=== PATIENT | female | born 1970 | race Caucasian/White ===

== ENCOUNTER 2022-07-01 17:09 | Outpatient (CLI) | payer OTHER, SELFPAY ==
[2022-07-01 17:32] LABS: Basophils Absolute Auto 0.1 K/mm3 (0.0-0.1); Basophils Percent Auto 0.5 % (0.2-1.2); Eosinophils Absolute Auto 0.2 K/mm3 (0-0.3); Eosinophils Percent Auto 1.4 % (0-4.4); Hemoglobin 12.2 g/dL (12.0-15.0); Immature Granulocyte Absolute 0.04 K/mm3 (0.00-0.031); Immature Granulocyte Percent A 0.3 % (0-0.5); Lymphocytes Absolute Auto 2.11 K/mm3 (0.9-3.2); Lymphocytes Percent Auto 16.2 % (18.3-44.2); Mean Corpuscular HGB Conc 30.5 g/dl (32-36); Mean Corpuscular Hemoglobin 22.1 pg (26-34); Mean Corpuscular Volume 72.3 fl (80-100); Mean Platelet Volume 8.8 fl (7.4-10.4); Monocytes Absolute Auto 0.7 K/mm3 (0.1-0.6); Monocytes Percent Auto 5.1 % (2.6-8.5); Neutrophils Percent Auto 76.5 % (45.5-73.1); Platelet Count Result 484 k/mm3 (150-375); Red Blood Count 5.53 M/mm3 (4.2-5.4); Red Cell Distribution Width 20.1 % (11.5-14.5)
[2022-07-01 17:47] LABS: Alanine Aminotransferase 21 U/L (6-35); Albumin Level 4.1 g/dL (3.5-5.1); Alkaline Phosphatase 95 U/L (38-126); Anion Gap 10 mmol/L (8-16); Aspartate Amino Transferase 26 U/L (14-36); Bilirubin,Total 0.6 mg/dL (0.2-1.3); Blood Urea Nitrogen 11 mg/dL (7-17); Calcium 8.3 mg/dL (8.4-10.2); Carbon Dioxide 25 mmol/L (22-30); Chloride 102 mmol/L (98-107); Cholesterol 198 mg/dL (0-200); Estimated Glomerular Filt Rate > 60; Glucose 150 mg/dL (65-110); HDL Direct 41 mg/dL; Sodium 137 mmol/L (137-145); Triglycerides 90 mg/dL (<150)
[2022-07-01 17:58] LABS: LDL Cholesterol Direct 116 mg/dL
[2022-07-01 18:03] LABS: Bacteria Urine None Seen /hpf; Non Pathogenic Casts 0-2; RBC Urine >100 /hpf (0-2); Squamous Epithelial Cell Urine Few /hpf (Few); WBC Urine >100 /hpf (0-3)
[2022-07-01 18:13] LABS: Thyroid Stimulating Hormone 0.855 uIU/mL (0.465-4.680)
[2022-07-01 18:23] LABS: Iron 42 ug/dL (37-170)
[2022-07-01 18:32] LABS: Appearance Urine Cloudy (Clear); Bilirubin Urine Negative (Negative); Blood Urine 3+ (Negative); Color Urine Yellow (Yellow); Glucose Urine UA Negative (Negative); Ketones Urine Trace mg/dL (Negative); Leukocyte Esterase Ur 1+ LEU/UL (NEGATIVE); Nitrate Urine Negative (Negative); Protein Urine 2+ mg/dL (Negative); Urobilinogen Urine 0.2 mg/dL (<2.0)
[2022-07-01 18:33] LABS: Percent Iron Saturation 11 % (20-50)
[2022-07-01 18:53] LABS: Add Urine Microscopic? YES
[2022-07-01 19:07] LABS: Free T4 Free Thyroxine 1.09 ng/mL (0.78-2.19); Vitamin D 25 Hydroxy 30.6 ng/mL
[2022-07-01 20:09] LABS: Hypochromasia 1+ (NORMAL); Platelet Estimate Increased (Adequate); Schistocytes None Seen (NORMAL)
[2022-07-01 20:10] LABS: Anisocytosis 3+ (NORMAL)
== END 2022-07-01 17:10 | disposition home or self-care (01) ==
LOC: ANHLAB 17:09
PROVIDERS: PCP Internal Medicine; Visit Provider Nurse Practitioner Family
DX: N39.0 Urinary tract infection, site not specified (principal); F41.9 Anxiety disorder, unspecified; E55.9 Vitamin D deficiency, unspecified; Z79.899 Other long term (current) drug therapy; I10 Essential (primary) hypertension; D64.9 Anemia, unspecified; Z13.220 Encounter for screening for lipoid disorders
CPT/HCPCS: 36415; 80053; 80061; 81001; 82306; 83540; 83550; 84439; 84443; 85025; 87077; 87086; 87088; 87186

== ENCOUNTER 2022-07-03 13:56 | Outpatient (CLI) | payer OTHER, SELFPAY ==
--- NOTE | ~2022-07-03 | DEXA_ITS ---
Bone Density Report Name: SKYLER VENEGAS Age: 51 Sex: Female Ethnicity: White Date of : 1970 Indication: postmenopausal; screening for osteoporosis; hysterectomy; Referring Provider: KEVON SANCHEZ Study: Bone densitometry was performed. Exam Date: July 03, 2022 Accession number: [id number] Bone Density: Region BMD T-score Z-score Classification AP Spine(L1-L4) 1.063 0.1 1.1 Normal Femoral Neck (Left) 0.807 -0.4 0.6 Normal Total Hip (Left) 0.998 0.5 1.1 Normal Femoral Neck (Right) 0.854 0.0 1.0 Normal Total Hip (Right) 1.029 0.7 1.3 Normal Total Hip Mean 1.014 0.6 1.2 Normal World Health Organization criteria for BMD impression classify patients as: Normal (T-score at or above -1.0), Osteopenia (T-score between -1.0 and -2.5), or Osteoporosis (T-score at or below -2.5). 10-year Fracture Risk: FRAX not reported because: All T-scores for Spine Total, Hip Total, Femoral Neck at or above -1.0 Clinical Information Provided by Patient: Has the following medical conditions: Hysterectomy Patient maximum height was 60 Menopause Age: 31 No regular weight bearing exercise Drinks caffeinated beverages Onset of menses at age 10 Number of children 2 Impression: The patient has normal bone mass. Discussion: BONE DENSITY IS ABOVE THE MINIMUM DESIRABLE LEVEL AT ALL SKELETAL SITES TESTED. This patient?s bone mineral density is above the minimum desirable level (T-score -1.0 or better) at all sites measured. The patient should follow a healthful lifestyle (good nutrition with adequate calcium and vitamin D, and appropriate weight-bearing exercise). Follow-Up: Consider repeating this study in 5 years or sooner if there is some new clinical indication. Reported by: [facility] on 07/03/2022 2:28:00 PM. Reviewed, dictated and finalized at location A. [facility]
--- NOTE | ~2022-07-03 | MM_ITS ---
EXAMINATION: MM screening jesi BI w zita HISTORY: Screening TECHNIQUE: Craniocaudal and mediolateral oblique 3-D tomosynthesis images were obtained and synthetic 2-D images were generated. CAD analysis was submitted and interpreted. COMPARISON: 03/09/2018 BREAST PARENCHYMAL COMPOSITION: There are scattered areas of fibroglandular density. FINDINGS: There is no evidence of suspicious mass, calcification, or architectural distortion to sugg est malignancy in either breast. There has been no suspicious interval change. IMPRESSION: 1. No mammographic evidence of malignancy. 2. Recommend routine screening mammography in one year. BI-RADS Category 1: Negative Reviewed, dictated and finalized at location B.
== END 2022-07-03 13:57 | disposition home or self-care (01) ==
LOC: ANHIMG 13:57
PROVIDERS: PCP Internal Medicine; Visit Provider Nurse Practitioner Family
DX: Z12.31 Encounter for screening mammogram for malignant neoplasm of breast (principal); Z13.820 Encounter for screening for osteoporosis; Z78.0 Asymptomatic menopausal state
CPT/HCPCS: 77063; 77067; 77080

== ENCOUNTER 2024-05-09 12:17 | Inpatient (IN) | payer SELFPAY ==
[2024-05-09] VITALS (15 sets, daily range): BP systolic 123–183; BP diastolic 72–115; PULSE 68–104; RESP 12–26; TEMP 36.8–37.2; O2SAT 95–99; BMI 33.6
--- NOTE | ~2024-05-09 | XR_ITS ---
Portable chest x-ray Comparison: 03/28/2009 Clinical History: Chest pain Findings: Lungs are clear, without focal consolidation or pleural effusion. Cardiomediastinal silho uette is stable. Bones and soft tissues are unremarkable. Impression: Clear lungs. Reviewed, dictated and finalized at location . Impression: Clear lungs.
--- NOTE | 2024-05-09 12:21 | ECG_ITS ---
Test Date: 2024-05-09 12:24:11 Measurements Intervals Lester Rate: 104 P: 63 MT: 187 QRS: -26 QRSD: 98 T: 76 QT: 364 QTc: 481 Interpretive Statements SINUS TACHYCARDIA POSSIBLE ANTERIOR MYOCARDIAL INFARCTION , OF INDETERMINATE AGE [30 ms Q WAVE IN V3/V4, OR R < 0.2 mV IN V4] INFERIOR MYOCARDIAL INFARCTION , POSSIBLY ACUTE [40+ ms Q WAVE AND/OR ST/T ABNORMALITY IN II/aVF] ACUTE OK No previous ECG available for comparison Electronically Signed On 05-10-2024 12:07:08 CDT by Jake Barnett M.D.
[2024-05-09] MEDS: HEPARIN SODIUM 5,000 UNITS/ML VIAL 4000 UNITS IV PUSH (12:33)
[2024-05-09] MEDS: TICAGRELOR 90 MG TABLET 180 MG PO (12:33)
[2024-05-09] MEDS: MORPHINE SULFATE (*CRX) 4 MG/ML INJ IV PUSH (12:34)
[2024-05-09 12:38] LABS: Basophils Absolute Auto 0.1 K/mm3 (0.0-0.1); Basophils Percent Auto 0.9 % (0.2-1.2); Eosinophils Absolute Auto 0.2 K/mm3 (0-0.3); Hematocrit 38.1 % (37.0-47.0); Hemoglobin 11.8 g/dL (12.0-15.0); Immature Granulocyte Absolute 0.02 K/mm3 (0.00-0.031); Immature Granulocyte Percent A 0.3 % (0-0.5); Lymphocytes Absolute Auto 2.37 K/mm3 (0.9-3.2); Lymphocytes Percent Auto 35.9 % (18.3-44.2); Mean Corpuscular Hemoglobin 22.6 pg (26-34); Mean Platelet Volume 9.1 fl (7.4-10.4); Monocytes Absolute Auto 0.8 K/mm3 (0.1-0.6); Neutrophils Absolute Auto 3.2 K/mm3 (1.3-6.7); Neutrophils Percent Auto 47.9 % (45.5-73.1); Platelet Count Result 443 k/mm3 (150-375); Red Blood Count 5.22 M/mm3 (4.2-5.4); Red Cell Distribution Width 18.7 % (11.5-14.5); White Blood Count 6.6 K/mm3 (4.5-10.0)
--- NOTE | 2024-05-09 12:38 | ED_ITS ---
HPI - General Adult General Chief complaint: Chest Pain Stated complaint: STEMI Time Seen by Provider: 05/09/24 12:23 History of Present Illness HPI narrative: 53-year-old female presented emergency department for evaluation evaluation of chest pain that started approximately 20 minutes prior to arrival. Patient describes the chest pain is a pressure across her bilateral chest that did radiate into her neck and into her back. Patient has no prior history of coronary artery disease. Patient does have history hypertension, patient denies any history of high cholesterol or diabetes. Patient states she has never had a stress test. Patient does have a significant history of anxiety. Due to her EKG STEMI was called in the field and this EKG was shared with Cardiology prior to the patient's arrival to the emergency department. Related Data Allergies Allergy/AdvReac Type Severity Reaction Status Date / Time cephalexin Allergy Intermediate Dizziness Verified 01/14/24 10:10 brompheniramine Allergy Mild Other Verified 01/14/24 10:10 dextromethorphan Allergy Mild Headache Verified 01/14/24 10:10 pseudoephedrine Allergy Mild Headache Verified 01/14/24 10:10 Review of Systems 2 Review of Systems: All systems reviewed & are unremarkable except as noted in HPI and below PMFSH Surgical History Surgical History History of cholecystectomy H/O: hysterectomy Family History Family History Father No problems noted. Mother No problems noted. Sibling No problems noted. 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 Gender identity (if verbalized by the patient): Female Spiritual care concerns: No Exam 2 Narrative: APPEARANCE: Uncomfortable appearing HEAD: normocephalic, atraumatic. EYES: PERRLA/EOMI, conjunctivae clear. NOSE: Normal no drainage EARS:TMS clear with good light reflex. THROAT: Pharynx clear, no exudate. NECK: Supple. No adenopathy, no masses. RESPIRATORY: Airway patent, respirations nonlabored. Clear to auscultation bilaterally, no rales, rhonchi, wheezing. CARDIOVASCULAR: Regular rate and rhythm without murmurs rubs or gallops. ABDOMINAL: Soft, nontender, nondistended, normal bowel sounds MUSCULOSKELETAL: Moves all extremities. Strength/ROM intact, No edema, No calf tenderness. NEURO: Alert. Cranial nerves II through XII intact. Grossly intact SKIN: Warm, dry. Normal Color Course Vital Signs Vital signs: Vital Signs Temperature 98.2 F 05/09/24 12:22 Pulse Rate 104 H 05/09/24 12:22 Respiratory Rate 16 05/09/24 12:22 Blood Pressure 183/112 H 05/09/24 12:22 Pulse Oximetry 98 05/09/24 12:22 Oxygen Delivery Room Air 05/09/24 12:22 Temperature 98.4 F 05/09/24 16:30 Pulse Rate 73 05/09/24 19:10 Respiratory Rate 18 05/09/24 19:10 Blood Pressure 123/89 05/09/24 19:10 Pulse Oximetry 99 05/09/24 19:10 Oxygen Delivery Room Air 05/09/24 16:00 Medical Decision Making MDM Narrative Medical decision making narrative: 53-year-old female presenting to the emergency department for evaluation for chest pain. EKG was concerning for acute STEMI. Case was discussed with Cardiology. Patient did have 34 aspirin prior to arrival. Patient was treated with 4000 of heparin along with 180 of Brilinta. Patient was also treated with for IV morphine. Patient family were updated on the EKG and plan for cardiac catheterization. Differential Diagnosis Differential Diagnosis: ACS, STEMI, NSTEMI, coronary artery dissection Vital Signs Vital Signs: Vital Signs Temperature 98.2 F 05/09/24 12:22 Pulse Rate 104 H 05/09/24 12:22 Respiratory Rate 16 05/09/24 12:22 Blood Pressure 183/112 H 05/09/24 12:22 Pulse Oximetry 98 05/09/24 12:22 Oxygen Delivery Room Air 05/09/24 12:22 Temperature 98.4 F 05/09/24 16:30 Pulse Rate 73 05/09/24 19:10 Respiratory Rate 18 05/09/24 19:10 Blood Pressure 123/89 05/09/24 19:10 Pulse Oximetry 99 05/09/24 19:10 Oxygen Delivery Room Air 05/09/24 16:00 Lab Data Lab results reviewed: Yes I reviewed the patient's lab results. 05/09/24 12:32 05/09/24 12:32 Labs: Lab Results 05/09/24 Range/Units 12:32 WBC Pending RBC Pending Hgb Pending Hct Pending MCV Pending MCH Pending MCHC Pending RDW Pending Plt Count Pending MPV Pending Immature Gran % (Auto) Pending Neut % (Auto) Pending Lymph % (Auto) Pending Freestone % (Auto) Pending Eos % (Auto) Pending Baso % (Auto) Pending Lymph # (Auto) Pending Freestone # (Auto) Pending Eos # (Auto) Pending Baso # (Auto) Pending Abs Immat Gran (auto) Pending Absolute Neuts (auto) Pending Absolute Nucleated RBC Pending Nucleated RBC % Pending PT Pending INR Pending APTT Pending Sodium Pending Potassium Pending Chloride Pending Carbon Dioxide Pending Anion Gap Pending BUN Pending Creatinine Pending Estim Creat Clear Calc Pending Estimated GFR Pending Glucose Pending Calcium Pending Total Bilirubin Pending AST Pending ALT Pending Alkaline Phosphatase Pending Troponin I Pending Total Protein Pending Albumin Pending Triglycerides Pending Cholesterol Pending LDL Cholesterol Direct Pending HDL Direct Pending ECG Data EKG #1: EKG Interpretation: tachycardia, sinus rhythm, ST depression and ST elevation Critical Care Time Critical Care Time Critical Care Time: Yes Total Critical Care Time: 35 Discharge Plan Discharge Clinical Impression: Non-STEMI (non-ST elevated myocardial infarction) Patient Disposition: Still a Patient Condition: Serious
--- NOTE | 2024-05-09 12:45 | PC.NURSE ---
Report given to PANCHO Bailey with the label stitcher. Pt. taken up to the label stitcher, AED pads attached and pt. on the monitor. Pt. belongings given to pt. daughter at bedside. Pt. daughter and brother taken up to ICU WR by .
--- NOTE | 2024-05-09 12:51 | PC.NURSE ---
Stemi O/H 12:15 [place] 12:15 Dr Cerda 12:15 left VM [facility] [id number]
--- NOTE | 2024-05-09 12:51 | PM.IMHP ---
H&P: HPI History of Present Illness Date/Time: 05/09/24 12:51 Chief Complaint: Chest pain Narrative: Meredith is a 53 year old female with no prior cardiac history who presented with chest pain that began about 20 minutes prior to arrival. Pain radiated to neck and back. EKG by EMS shows inferolateral STEMI. film laboratory technician activated. EKG in the ED shows sinus rhythm, inferolateral ST elevations with reciprocal ST depressions. Review of Systems Review of Systems: All systems reviewed & are unremarkable except as noted in HPI and below (HPI) [facility] Surgical History Surgical History H/O: hysterectomy History of cholecystectomy Family History Family History Father No problems noted. Mother No problems noted. Sibling No problems noted. Social History Social History (Updated 01/14/24 @ 10:13 by ADELA Avina) Smoking status: Never smoker Second hand tobacco smoke exposure: Yes Alcohol intake: never Substance use: never Substance use type: does not use Do You Feel Safe in your Home?: Yes Lack of Transportation: No Lack of Food: Never True Current Housing: I Have Housing Concerned About Future Housing: No Difficulty Paying Gas/Electric Bills: No Difficulty Paying for Meds: No Currently Unemployed: No Education: High School Diploma/GED Difficulty w/ Childcare or Family Care: No Living arrangements: alone Occupation/Education: occupation 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 Gender identity (if verbalized by the patient): Female Meds Home Medications and Allergies Home Medications ?Medication ?Instructions ?Recorded ?Confirmed ?Type triamcinolone acetonide 0.1 % 1 applic topical BID #30 grams 10/24/21 01/14/24 Rx topical cream ferrous sulfate 325 mg (65 mg 325 mg PO BID 90 days #180 tabs 12/15/21 01/14/24 Rx iron) tablet (Feosol) clindamycin 1.2 % (1 % 1 applic topical DAILY #45 grams 11/22/23 01/14/24 Rx base)-benzoyl peroxide 5 % topical gel amlodipine 5 mg tablet See Rx Instructions .Route 01/14/24 01/14/24 Rx .COMPLEX #90 tabs citalopram 20 mg tablet See Rx Instructions .Route 01/14/24 01/14/24 Rx .COMPLEX #90 tabs omeprazole 40 mg capsule,delayed 40 mg PO DAILY #90 caps 01/14/24 01/14/24 Rx release doxycycline hyclate 100 mg tablet 100 mg PO BID #20 tabs 04/17/24 Rx alprazolam 0.25 mg tablet (Xanax) 0.25 mg PO TID PRN anxiety #90 tabs 04/19/24 Rx Allergies Allergy/AdvReac Type Severity Reaction Status Date / Time cephalexin Allergy Intermediate Dizziness Verified 01/14/24 10:10 brompheniramine Allergy Mild Other Verified 01/14/24 10:10 dextromethorphan Allergy Mild Headache Verified 01/14/24 10:10 pseudoephedrine Allergy Mild Headache Verified 01/14/24 10:10 Vital Signs Vital Signs - 24 hr 05/09/24 12:22 05/09/24 12:28 05/09/24 12:32 Temperature 36.8 C Pulse Rate 104 H 97 Respiratory Rate 16 14 Blood Pressure 183/112 H 175/115 H Pulse Oximetry 98 97 Oxygen Delivery Room Air Room Air Exam Const: General: no acute distress HENMT: Mouth: Yes moist mucous membranes Eyes: General: appearance normal, both eyes and all related structures Sclera: sclerae normal Resp: Effort & Inspection: normal respiratory effort Cardio: Rate: regular rate Rhythm: regular rhythm Skin: General skin exam: normal color Neuro: Speech: normal speech Psych: Mental Status: mental status grossly normal Affect: normal affect Assessment and Plan Assessment and plan (1) STEMI (ST elevation myocardial infarction): Code(s): I21.3 - ST elevation (STEMI) myocardial infarction of unspecified site Status: Acute Plan Proceed with emergent LHC. Further recommendations and plan pending results of LHC.
--- NOTE | 2024-05-09 12:56 | P.SEDATION_ITS ---
Moderate Sedation Note-Pt Data Patient Data Diagnosis: STEMI Present Complaint: STEMI Procedure to be performed/Plan: Primary PCI Allergies Allergy/AdvReac Type Severity Reaction Status Date / Time cephalexin Allergy Intermediate Dizziness Verified 01/14/24 10:10 brompheniramine Allergy Mild Other Verified 01/14/24 10:10 dextromethorphan Allergy Mild Headache Verified 01/14/24 10:10 pseudoephedrine Allergy Mild Headache Verified 01/14/24 10:10 Home Medications ?Medication ?Instructions ?Recorded ?Confirmed ?Type triamcinolone acetonide 0.1 % 1 applic topical BID #30 grams 10/24/21 01/14/24 Rx topical cream ferrous sulfate 325 mg (65 mg 325 mg PO BID 90 days #180 tabs 12/15/21 01/14/24 Rx iron) tablet (Feosol) clindamycin 1.2 % (1 % 1 applic topical DAILY #45 grams 11/22/23 01/14/24 Rx base)-benzoyl peroxide 5 % topical gel amlodipine 5 mg tablet See Rx Instructions .Route 01/14/24 01/14/24 Rx .COMPLEX #90 tabs citalopram 20 mg tablet See Rx Instructions .Route 01/14/24 01/14/24 Rx .COMPLEX #90 tabs omeprazole 40 mg capsule,delayed 40 mg PO DAILY #90 caps 01/14/24 01/14/24 Rx release doxycycline hyclate 100 mg tablet 100 mg PO BID #20 tabs 04/17/24 Rx alprazolam 0.25 mg tablet (Xanax) 0.25 mg PO TID PRN anxiety #90 tabs 04/19/24 Rx Sedation/Anesthesia: No previous sedation/anesthesia problems (including family history). [facility] Surgical History Surgical History History of cholecystectomy H/O: hysterectomy Family History Family History Father No problems noted. Mother No problems noted. Sibling No problems noted. 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 Gender identity (if verbalized by the patient): Female Mod Sed Physical Exam Physical Exam Pre Procedural Exam: Normal: Appearance, Lungs, Heart Rate, Heart Rhythm, Neuro Exam, Extremities and Skin Hours since solid foods: 0 Hours since liquid intake: 0 Mallampati Classification: class III Internal Medicine - PN: Obj Da Vital Signs Vital Signs: Vital Signs - 24 hr 05/09/24 12:22 05/09/24 12:28 05/09/24 12:32 Temperature 36.8 C Pulse Rate 104 H 97 Respiratory Rate 16 14 Blood Pressure 183/112 H 175/115 H Pulse Oximetry 98 97 Oxygen Delivery Room Air Room Air Meds/Results Radiology Results: ITS Impressions Chest X-Ray 05/09/24 12:42 Impression: Clear lungs. Labs 05/09/24 12:32 05/09/24 12:32 ASA Classification/Sedation ASA Classification/Sedation ASA Class: IV Emergent: Yes Risks: Risks, benefits and alternatives explained and patient/family accepted plan for sedation. Patient re-evaluated immediately prior to sedation.
[2024-05-09 12:59] LABS: Partial Thromboplastin Time 28.2 Seconds (22.3-36.8); Prothrombin Time 13.2 Seconds (11.1-14.7)
[2024-05-09 13:03] LABS: Alanine Aminotransferase 14 U/L (6-35); Albumin Level 3.8 g/dL (3.5-5.1); Alkaline Phosphatase 105 U/L (38-126); Anion Gap 13 mmol/L (4-12); Aspartate Amino Transferase 19 U/L (14-36); Bilirubin,Total 0.3 mg/dL (0.2-1.3); Blood Urea Nitrogen 12 mg/dL (7-17); Calcium 8.6 mg/dL (8.4-10.2); Carbon Dioxide 20 mmol/L (22-30); Chloride 107 mmol/L (98-107); Cholesterol 189 mg/dL (0-200); Estimated CRCL calculation 74 ml/min; Estimated Glomerular Filt Rate > 60; Glucose 172 mg/dL (65-110); HDL Direct 44 mg/dL; Potassium 3.3 mmol/L (3.4-5.0); Sodium 140 mmol/L (137-145); Triglycerides 98 mg/dL (<150)
[2024-05-09 13:14] LABS: Anisocytosis 1+; LDL Cholesterol Direct 88 mg/dL
[2024-05-09 13:15] LABS: Schistocytes None Seen
[2024-05-09 13:16] LABS: Platelet Estimate Slightly Increased (Adequate)
[2024-05-09 13:17] LABS: Troponin I 0.013 ng/mL (0.000-0.034)
--- NOTE | 2024-05-09 14:08 | ECG_ITS ---
Test Date: 2024-05-09 14:51:36 Measurements Intervals Webb Rate: 75 P: 9 DC: 167 QRS: -24 QRSD: 90 T: 2 QT: 402 QTc: 451 Interpretive Statements SINUS RHYTHM WITH OCCASIONAL VENTRICULAR PREMATURE COMPLEXES POSSIBLE ANTERIOR MYOCARDIAL INFARCTION [30 ms Q WAVE IN V3/V4, OR R < 0.2 mV IN V4], OF INDETERMINATE AGE INFERIOR MYOCARDIAL INFARCTION, AGE INDETERMINATE ABNORMAL ECG Electronically Signed On 05-10-2024 12:10:56 CDT by Jake Barnett M.D.
--- NOTE | 2024-05-09 14:08 | P.CONIN_ITS ---
Assessment and Plan Assessment and plan (1) STEMI (ST elevation myocardial infarction): Code(s): I21.3 - ST elevation (STEMI) myocardial infarction of unspecified site Status: Acute Assessment and Plan: 05/09: Patient presented with chest pain, shortness of breath, diaphoresis, nausea. EMS was called, EKG done by EMS showed in few lateral CA, STEMI team was alerted. 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 Discussed with Cardiology, will maintain systolic blood pressures < 130 mmHg -medical management with aspirin, statin, Plavix, metoprolol (2) Essential (primary) hypertension: Code(s): I10 - Essential (primary) hypertension Status: Acute Assessment and Plan: History of hypertension, on amlodipine -will add p.r.n. hydralazine for hypertension for SBP > 130 mmHg Plan DVT prophylaxis: SCDs Stress ulcer prophylaxis: Omeprazole Nutrition: Heart healthy diet Code Status: Full code Critical Care Time Spent: 44 minutes Due to a high probability of clinically significant, life threatening deterioration, the patient required my highest level of preparedness to intervene emergently and I personally spent this critical care time directly and personally managing the patient. This critical care time included obtaining a history; examining the patient; pulse oximetry; ordering and review of studies; arranging urgent treatment with development of a management plan; evaluation of patient's response to treatment; frequent reassessment; and discussions with other providers. It was exclusive of separately billable procedures and treating other patients and teaching time. Please see Assessment and Plan section and the rest of the note for further information on patient assessment and treatment This dictation may have been done utilizing a voice recognition system. Attempts have been made to correct errors. However, there may be uncorrected grammatical, spelling, and recognitions errors present. [employer] Social [employer] Teacher Consult Note Consult date: 05/09/24 Reason for consult: SCADS - Spontaneous carotid artery dissection of the RPDA HPI: Meredith Gilbert is a 53 year old female with past with history of essential hypertension, no past coronary artery disease presented the ED on 05/09/2024 with complains of chest pain that started 20 minutes prior to arrival to the ER. EKG by EMS showed inferolateral ST-elevation elevations with reciprocal ST depression. Patient stated chest pain was substernal, radiated to his jaw was in both arms, also radiate to the back. Associated symptoms were diaphoresis, shortness of breath, nausea. STEMI team was activated, emergent coronary angiogram showed spontaneous carried artery dissection of the RPDA. Discussed with metal furniture glazier, there was adequate blood flow in the RPDA. Medical management for now. Will maintain blood pressure is <130/80. Initial troponin was 0.013. Hemoglobin of 11.8, platelets of 443, sodium 140 potassium 3.3, CO2 20, BUN 12, creatinine 0.72, blood sugars 172. LFTs within normal limits. Chest x-ray: No acute cardiopulmonary disease Patient seen examined upon arrival to the ICU, is chest pain-free, denies any shortness of breath, nausea, diaphoresis at this time. Hemodynamically stable. Patient denies any tobacco, alcohol illicit drug use Review of Systems 2 Review of Systems: All systems reviewed & are unremarkable except as noted in HPI and below PMFSH Surgical History Surgical History History of cholecystectomy H/O: hysterectomy Family History Family History Father No problems noted. Mother No problems noted. Sibling No problems noted. 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 Gender identity (if verbalized by the patient): Female Meds Home Medications and Allergies Home Medications ?Medication ?Instructions ?Recorded ?Confirmed ?Type amlodipine 5 mg tablet See Rx Instructions .Route 01/14/24 05/09/24 Rx .COMPLEX #90 tabs citalopram 20 mg tablet See Rx Instructions .Route 01/14/24 05/09/24 Rx .COMPLEX #90 tabs omeprazole 40 mg capsule,delayed 40 mg PO DAILY #90 caps 01/14/24 05/09/24 Rx release alprazolam 0.25 mg tablet (Xanax) 0.25 mg PO TID PRN anxiety #90 tabs 04/19/24 05/09/24 Rx Allergies Allergy/AdvReac Type Severity Reaction Status Date / Time cephalexin Allergy Intermediate Dizziness Verified 01/14/24 10:10 brompheniramine Allergy Mild Other Verified 01/14/24 10:10 dextromethorphan Allergy Mild Headache Verified 01/14/24 10:10 pseudoephedrine Allergy Mild Headache Verified 01/14/24 10:10 Vital Signs Vital Signs - 24 hr 05/09/24 12:22 05/09/24 12:28 05/09/24 12:32 Temperature 98.2 F Pulse Rate 104 H 97 Respiratory Rate 16 14 Blood Pressure 183/112 H 175/115 H Pulse Oximetry 98 97 Oxygen Delivery Room Air Room Air Exam 2 Narrative: General: Pleasant female in no acute distress HEENT:? Pupils equal and reactive, sclera is clear, moist oral mucosa Neck:? Supple Respiratory:? Care to auscultation bilaterally, no wheezing, adequate air entry Cardiac:? S1-S2 is normal, regular rate and rhythm Abdomen:? Soft, nontender, nondistended, normoactive bowel sound Extremities:? No edema, palpable pedal pulse. Right medial angiogram site with TR band, no evidence of ecchymosis or hematoma. Right radial pulse is palpable Neuro:? Awake, alert, oriented x3, nonfocal Skin:? No skin lesions noted Psych:? Normal mentation and affect Results Labs 05/09/24 12:32 05/09/24 12:32 Labs: Short CBC 05/09/24 Range/Units 12:32 WBC 6.6 (4.5-10.0) K/mm3 Hgb 11.8 L (12.0-15.0) g/dL Hct 38.1 (37.0-47.0) % Plt Count 443 H (150-375) k/mm3 BMP 05/09/24 12:32 Sodium 140 Potassium 3.3 L Chloride 107 Carbon Dioxide 20 L BUN 12 Creatinine 0.72 Glucose 172 H Calcium 8.6 Cardiac Enzymes 05/09/24 Range/Units 12:32 Troponin I 0.013 (0.000-0.034) ng/mL Liver Function 05/09/24 Range/Units 12:32 Total Bilirubin 0.3 (0.2-1.3) mg/dL AST 19 (14-36) U/L ALT 14 (6-35) U/L Alkaline Phosphatase 105 (38-126) U/L Albumin 3.8 (3.5-5.1) g/dL Quality VTE Prophylaxis VTE prophylaxis: mechanical ordered Hospitalist MIPS Advance Care Plan I have confirmed that the patient's Advanced Care Plan is present, code status is documented, or surrogate decision maker is listed in patient medical record.: Yes Medication Reconciliation I have utilized all available resources to obtain, update and review the patients current medications (includes all prescriptions, OTC, herbals, cannabis, and nutritional supplements).: Yes
--- NOTE | 2024-05-09 14:09 | P.PCNCC_ITS ---
Cardiac Cath Procedure Note Date of procedure:: 05/09/24 Performing physician:: CATHETERIZATION LABORATORY REPORT Procedure Date: 05/09/2024 Configuration Developer: Eyal Cerda M.D., [facility]? Referring Physician: Estrada Jiménez M.D. ? Anesthesia: Versed and Fentanyl were ordered and given in my presence at 12:59, procedure ended at 13:50. Supervision of nurse monitored moderate sedation with Versed and Fentanyl was provided for 51 minutes. Total of Versed 2mg and Fentanyl 50mcg were administered by the Product Engineering Manager RN Gallo Saldivar. Pre-op Diagnosis: Inferolateral STEMI Post-op Diagnosis: 1. 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 Elevated left ventricular end-diastolic pressure of 21mmHg Procedure(s): 1. Moderate sedation 2. Ultrasound-guided access of the right common femoral artery 3. Ultrasound-guided access of the right radial artery 4. Coronary angiography 5. Left heart cath Access Site: Right radial artery Right common femoral artery Brief History and Clinical Indications: Patient is a 53 year old female with hypertension who is referred for emergent LHC for inferolateral STEMI. All risks, benefits and alternatives to left heart catheterization with or without percutaneous coronary intervention was discussed at length with the patient. Risk of complications including but not limited to bleeding, infection, arrhythmia, stroke, worsening kidney function, blood loss, groin hematoma, limb loss, emergency coronary artery bypass grafting, and even were discussed with the patient and all questions were answered. The patient understood and wished to proceed. Time out called, patient name, date of , medical record number, allergies, procedure performed, identify Configuration Developer, patient and staff member concurred with accurate data, procedure carried on. Findings: LEFT HEART CATHETERIZATION FINDINGS: 1. Left main: The left main coronary artery is widely patent without any significant obstructive disease. 2. Left anterior descending: The LAD and the diagonal branches have mild luminal irregularities without any significant obstructive angiographic disease. 3. Left circumflex: The left circumflex artery and the main marginal branches have mild luminal irregularities without any significant obstructive angiographic disease. 4. Right coronary artery: The RCA has mild luminal irregularities without any significant obstructive angiographic disease. The RCA is the dominant vessel. 5. Left ventricle: A. End-diastolic pressure 21 mmHg. B. LV gram deferred. C. No significant gradient across aortic valve on catheter pullback. Description of Procedure: Informed consent signed and placed in the chart. Patient transferred to pharmaceutical laboratory technician room. Prepped and draped in usual sterile fashion. 2% lidocaine in right groin area. Micropuncture needle used to access right common femoral artery with Seldinger technique under fluoroscopic and ultrasound guidance. Fluoro showed the micropuncture needle was above the pelvic brim, therefore, needle withdrawn and manual pressure applied for hemostasis. Micropuncture needle used to access right common femoral artery with Seldinger technique under fluoroscopic and ultrasound guidance. J wire advanced, micropuncture cannula placed. Right iliofemoral angiogram performed, showed access was below the bifurcation. Angio shows a high bifurcation -- above the pelvic brim. Therefore, micropuncture cannula removed and manual pressure was applied for hemostasis. We decided to then pursue right radial access (didn't initially pursue radial access as the equipment for it was being used in another room at the time we started this case, however, equipment was then obtained). 2% lidocaine injected subcutaneously in right wrist area. 22-gauge venipuncture catheter used to access the right radial artery under ultrasound guidance. 6-FR slender sheath placed in right radial artery. Nitroglycerine and Verapamil were given intraarterial through the sheath. Versacore wire advanced under fluoroscopy 5F Tig 4 diagnostic catheter engaged Left Main Coronary Artery. 5F Tig 4 diagnostic catheter engaged Right Coronary Artery Multiple orthogonal angiogram obtained and reviewed Angiograms showed what appears to be type II SCAD of the RPDA. The Tig catheter was exchanged out for 5F FR 4 diagnostic catheter, which was then engaged in the RCA. IC NTG 300mcg was administered to rule out spasm. Repeat angiogram unchanged, ruling out spasm. 5F FR 4 diagnostic catheter crossed aortic valve to obtain LVEDP, LV angiogram deferred. Hemostasis was achieved by application of TR band. Disposition: ICU Plan: Admit to ICU. Medical management for SCAD. Continue aggressive medical therapy and risk factor modification. ? Eyal Cerda M.D. Interventional Cardiology
[2024-05-09 14:18] LABS: Hemoglobin A1C 5.6 % (<5.7)
[2024-05-09] MEDS: SODIUM CHLORIDE 0.9% IV 1,000 ML 125 ML IV CONT (15:11)
[2024-05-09] MEDS: PANTOPRAZOLE 40 MG TABLET PO (15:12)
[2024-05-09] MEDS: METOPROLOL SUCCINATE EXT REL 50 MG TABCR PO (15:12)
[2024-05-09] MEDS: ALPRAZolam (*CRX) 0.25 MG TABLET PO ×2 (16:22→21:54)
--- NOTE | 2024-05-09 17:02 | PC.NURSE ---
This patient, Meredith Gilbert, was admitted to Intensive Care Unit-8. Patient/family oriented to hospital policies and general routines including ID bracelet, bed and alarms, visiting hours, pain management, procedures, bathroom and other care routines, personal items, smoking policy, room service/diet, and visiting hours. Information on how to activate the Rapid Response Team has been discussed. Patient/Family are encouraged to report perceived risks to care and to ask questions if they do not understand what they are told or what they should do.
[2024-05-09] MEDS: ONDANSETRON INJ 4 MG/2 ML VIAL (18:25)
[2024-05-10] VITALS (13 sets, daily range): BP systolic 97–139; BP diastolic 64–95; PULSE 65–98; RESP 14–20; TEMP 36.6–37.2; O2SAT 91–100
--- NOTE | 2024-05-10 | ECHO_ITS ---
Patient Info Name: Meredith Gilbert Age: 53 years : 1970 Gender: Female Ht: 62 in Wt: 184 lbs BSA: 1.95 m2 HR: 69 bpm BP: 134 / 83 mmHg Heart Rhythm: Sinus Rhythm Technical Quality: Fair Exam Date: 05/10/2024 9:14 AM Exam Location: Echo Lab Patient Status: Inpatient Admit Date: 05/09/2024 Staff Ordering Physician: Eyal Cerda MD (nayana/norris) Claims Adjudicator: Griecl Patel RDCS Attending Provider: Eyal Cerda MD (nayana/norris) Referring Physician: Prashant MCBRIDE; Exam Type: CA echo dop color flow w con Study Info Indications - STEMI Complete two-dimensional, color flow and Doppler transthoracic echocardiogram is performed with contrast to opacify the left ventricle and to improve the deliniation of the left ventricle endocardial borders. Contrast/Agitated Saline Contrast/Ag. Saline: Definity Amount: 4.00 ml IV Access Condition: patent with no signs of infiltration Summary 1. Left ventricular chamber dimension is normal. 2. Left ventricular systolic function is mildly reduced, estimated at 45-50%. 3. There is mildly increased left ventricular wall thickness. 4. The left ventricular diastolic function is grade I diastolic dysfunction. 5. The apical septum, apical inferior wall, apical cap, and mid inferior wall are akinetic. 6. The apical lateral wall, basal inferior wall, basal inferoseptal, and mid inferoseptal are hypokinetic. 7. There is mild tricuspid valve regurgitation. Left Ventricle Left ventricular chamber dimension is normal. Left ventricular systolic function is mildly reduced, estimated at 45-50%. There is mildly increased left ventricular wall thickness. The left ventricular diastolic function is grade I diastolic dysfunction. The apical septum, apical inferior wall, apical cap, and mid inferior wall are akinetic. The apical lateral wall, basal inferior wall, basal inferoseptal, and mid inferoseptal are hypokinetic. All other perkins appear normal. Right Ventricle Right ventricular chamber dimension is normal. Right ventricular systolic function is normal. Left Atria Left atrial chamber dimension is normal. Right Atria Right atrial chamber dimension is normal. Atrial Septum Intact interatrial septum visualized by color flow imaging. Aortic Valve The aortic valve is trileaflet. There is mild aortic valve sclerosis. There is no aortic valve stenosis. There is trace aortic valve regurgitation. Pulmonic Valve The pulmonic valve is normal. There is no pulmonic valve stenosis. There is trace pulmonic regurgitation. Mitral Valve The mitral valve has normal leaflets. There is no mitral valve stenosis. There is trace mitral valve regurgitation. Tricuspid Valve The tricuspid valve leaflets are normal. There is no significant tricuspid valve stenosis. There is mild tricuspid valve regurgitation. No pulmonary hypertension, estimated pulmonary arterial systolic pressure is 28 mmHg. Pericardium/Pleural The pericardium appears normal. There is no pericardial effusion. Inferior Vena Cava Normal inferior vena cava with >50% collapse upon inspiration consistent with normal right atrial pressure, 8 mmHg. Aorta The aortic root size at the sinus of Valsalva is normal. Left Ventricular Outflow Tract Name Value Normal LVOT 2D LVOT Diameter 1.98 cm LVOT Doppler LVOT Peak Gradient 4 mmHg LVOT Mean Gradient 2 mmHg LVOT VTI 22.21 cm LVOT VTI/AV VTI Ratio 0.94 LVOT Stroke Volume 68.53 ml LVOT CO 5.14 l/min LVOT CI 2.64 L/min/m2 Pulmonic Valve Name Value Normal RVOT Doppler RVOT Peak Gradient 2 mmHg PV Doppler PV Peak Gradient 3 mmHg Mitral Valve Name Value Normal MV Doppler MV Decel [place] 406.97 cm/s2 MV PHT 0 s MV Area (PHT) 4.29 cm2 4.00-5.00 MV Diastolic Function MV E Peak Velocity 72.01 cm/s MV A Peak Velocity 94.92 cm/s MV E/A 0.76 MV Decel Time 0 s MV Annular TDI MV E/e' (Septal) 16.21 <=8.00 Tricuspid Valve Name Value Normal TV Regurgitation Doppler TR Peak Velocity 223.29 cm/s TR Peak Gradient 20 mmHg Estimated PAP/RSVP RA Pressure 8 mmHg <=5 PA Systolic Pressure 28 mmHg <36 RV Systolic Pressure 28 mmHg <36 Aortic Valve Name Value Normal AV Doppler AV Peak Velocity 121.77 cm/s AV Peak Gradient 6 mmHg AV Mean Gradient 3 mmHg AV VTI 23.57 cm AV Area (Cont Eq VTI) 2.91 cm2 >=3.00 AV Area (Cont Eq Edward) 2.54 cm2 AV Regurgitation 2D LVOT Area 3.09 cm2 Ventricles Name Value Normal LV Dimensions 2D/MM IVS Diastolic Thickness (2D) 1.05 cm 0.60-1.00 LVID Diastole (2D) 4.69 cm 3.80-5.20 LVIW Diastolic Thickness (2D) 0.97 cm 0.60-0.90 LVID Systole (2D) 3.19 cm 2.20-3.50 LVOT Diameter 1.98 cm LV Mass (2D Cubed) 166.25 g 67.00-162.00 LV Mass Index (2D Cubed) 0.01 g/cm2 0.00-0.01 Relative Wall Thickness (2D) 0.41 LV Fractional Shortening/Ejection Fraction 2D/MM LV Fractional Shortening (2D) 32 % 27-45 LV EF (2D Teichalisson) 60 % 54-74 LV Diastolic Volume (4C MOD) 165.13 ml LV EF (4C MOD) 43 % LV Diastolic Volume (2C MOD) 133.57 ml LV EF (2C MOD) 56 % LV Diastolic Volume (BP MOD) 151.06 ml 46.00-106.00 LV Diastolic Volume Index (BP MOD) 0.08 l/m2 0.03-0.06 LV Systolic Volume (BP MOD) 74.85 ml 14.00-42.00 LV Systolic Volume Index (BP MOD) 0.04 l/m2 0.01-0.02 LV EF (BP MOD) 50 % 54-74 LV Diastolic Length (4C) 9.13 cm LV Systolic Length (4C) 8.15 cm LV Stroke Volume (4C MOD) 70.47 ml Atria Name Value Normal LA Dimensions LA Volume (4C A-L) 59.76 ml LA Volume (BP A-L) 56.09 ml Wall Motion Scoring Wall Motion Scoring Index: 1.71 Report Signatures
[2024-05-10 04:45] LABS: Basophils Percent Auto 0.4 % (0.2-1.2); Eosinophils Absolute Auto 0.1 K/mm3 (0-0.3); Eosinophils Percent Auto 0.7 % (0-4.4); Hematocrit 35.3 % (37.0-47.0); Hemoglobin 10.8 g/dL (12.0-15.0); Immature Granulocyte Absolute 0.03 K/mm3 (0.00-0.031); Immature Granulocyte Percent A 0.3 % (0-0.5); Lymphocytes Absolute Auto 1.57 K/mm3 (0.9-3.2); Lymphocytes Percent Auto 15.5 % (18.3-44.2); Mean Corpuscular HGB Conc 30.6 g/dl (32-36); Mean Corpuscular Hemoglobin 22.7 pg (26-34); Mean Corpuscular Volume 74.2 fl (80-100); Mean Platelet Volume 9.3 fl (7.4-10.4); Monocytes Absolute Auto 0.7 K/mm3 (0.1-0.6); Monocytes Percent Auto 6.7 % (2.6-8.5); Neutrophils Absolute Auto 7.7 K/mm3 (1.3-6.7); Neutrophils Percent Auto 76.4 % (45.5-73.1); Platelet Count Result 387 k/mm3 (150-375); Red Blood Count 4.76 M/mm3 (4.2-5.4); Red Cell Distribution Width 18.7 % (11.5-14.5); White Blood Count 10.1 K/mm3 (4.5-10.0)
[2024-05-10 05:00] LABS: Alanine Aminotransferase 20 U/L (6-35); Albumin Level 3.4 g/dL (3.5-5.1); Alkaline Phosphatase 90 U/L (38-126); Anion Gap 7 mmol/L (4-12); Aspartate Amino Transferase 69 U/L (14-36); Bilirubin,Total 0.3 mg/dL (0.2-1.3); Blood Urea Nitrogen 9 mg/dL (7-17); Calcium 8.6 mg/dL (8.4-10.2); Carbon Dioxide 23 mmol/L (22-30); Chloride 108 mmol/L (98-107); Estimated CRCL calculation 74 ml/min; Estimated Glomerular Filt Rate > 60; Glucose 101 mg/dL (65-110); Phosphorus 4.4 mg/dL (2.5-4.5); Potassium 3.8 mmol/L (3.4-5.0); Sodium 138 mmol/L (137-145)
[2024-05-10 05:11] LABS: Band Neutrophils Percent 0 % (0-6); Platelet Estimate Slightly Increased (Adequate)
[2024-05-10 05:12] LABS: Anisocytosis 1+; Ovalocytes 1+; Schistocytes None Seen
[2024-05-10] MEDS: ASPIRIN 81 MG ENTERIC TABLET PO (08:35)
[2024-05-10] MEDS: METOPROLOL SUCCINATE EXT REL 50 MG TABCR PO (08:36)
[2024-05-10] MEDS: CITALOPRAM HYDROBROMIDE 20 MG TABLET PO (08:36)
[2024-05-10] MEDS: CLOPIDOGREL BISULFATE 75 MG TABLET PO (08:36)
[2024-05-10] MEDS: ATORVASTATIN 40 MG TABLET 80 MG PO (08:36)
[2024-05-10] MEDS: PANTOPRAZOLE 40 MG TABLET PO (08:36)
[2024-05-10] MEDS: amLODIPine BESYLATE 5 MG TABLET PO (08:36)
--- NOTE | 2024-05-10 09:40 | P.PNCA_ITS ---
Progress Note: A&P Assessment and Plan (1) STEMI (ST elevation myocardial infarction): Code(s): I21.3 - ST elevation (STEMI) myocardial infarction of unspecified site Status: Acute Assessment and Plan: Related to spontaneous coronary dissection. Continue dual anti-platelet therapy including aspirin clopidogrel. Continue amlodipine, metoprolol, atorvastatin. Echo pending. Anticipate discharge tomorrow (2) Essential (primary) hypertension: Code(s): I10 - Essential (primary) hypertension Status: Acute Assessment and Plan: Continue amlodipine and metoprolol (3) Spontaneous dissection of coronary artery: Code(s): I25.42 - Coronary artery dissection Status: Acute Assessment and Plan: As detailed above (4) Obesity: Code(s): E66.9 - Obesity, unspecified Status: Acute Assessment and Plan: Dietary and lifestyle modifications recommended Subjective Date/time seen: 05/10/24 09:40 Interval history: 53-year-old admitted for STEMI. Date of service 05/10/2024: Cardiac catheterization revealed a spontaneous coronary artery dissection as detailed below. She feels pretty good today. Denies any chest pain or shortness of breath. Review of Systems Review of Systems: All systems reviewed & are unremarkable except as noted in HPI and below Constitutional: Constitutional: Denies body ache(s) Eyes: Eyes: Denies blurry vision ENT: Denies Normal hearing present Cardiovascular: Cardiovascular: Denies chest pain Respiratory: Respiratory: Denies dyspnea Gastrointestinal: Gastrointestinal: Denies abdominal pain Genitourinary: Genitourinary: Denies hematuria Musculoskeletal: Musculoskeletal: Denies back pain Integumentary/Breasts: Skin/Breast: Denies dry skin Neurologic: Denies Abnormal speech present Psychiatric: Psychiatric: Denies anxiety Endocrine: Endocrine: Denies change in body appearance Hematologic/Lymphatic: Hematologic/Lymphatic: Denies easy bleeding Allergic/Immunologic: Allergic/Immunologic: Denies GI upset with certain foods Exam Narrative: Appears stated age Const: General: no acute distress HENMT: Mouth: Yes moist mucous membranes Eyes: General: appearance normal, both eyes and all related structures Sclera: sclerae normal Neck: Neck: supple and no JVD Resp: Effort & Inspection: normal respiratory effort Cardio: Rate: regular rate Rhythm: regular rhythm GI: Inspection: non-distended GI Palp: Yes Soft to palpation Skin: General skin exam: normal color Neuro: Speech: normal speech Extrem: General: normal to inspection Other: Right wrist free of hematoma ecchymosis Psych: Mental Status: mental status grossly normal Affect: normal affect Objective Data Vital Signs Vital Signs: Vital Signs - 24 hr 05/09/24 12:22 05/09/24 12:28 05/09/24 12:32 Temperature 36.8 C Pulse Rate 104 H 97 Respiratory Rate 16 14 Blood Pressure 183/112 H 175/115 H Pulse Oximetry 98 97 Oxygen Delivery Room Air Room Air 05/09/24 14:15 05/09/24 14:15 05/09/24 15:12 Temperature Pulse Rate 75 76 85 Respiratory Rate 16 Blood Pressure 141/86 H Pulse Oximetry 99 Oxygen Delivery 05/09/24 16:00 05/09/24 16:00 05/09/24 16:00 Temperature 36.9 C Pulse Rate 69 69 69 Respiratory Rate 12 12 Blood Pressure 139/87 Pulse Oximetry 99 99 Oxygen Delivery Room Air 05/09/24 16:30 05/09/24 17:10 05/09/24 17:40 Temperature 36.9 C Pulse Rate 69 77 68 Respiratory Rate 12 20 21 H Blood Pressure 139/87 126/75 124/72 Pulse Oximetry 99 98 95 Oxygen Delivery 05/09/24 18:00 05/09/24 18:00 05/09/24 18:10 Temperature Pulse Rate 72 72 72 Respiratory Rate 18 18 Blood Pressure 131/91 H 131/91 H Pulse Oximetry 99 98 Oxygen Delivery 05/09/24 19:10 05/09/24 20:00 05/09/24 20:00 Temperature 37.2 C Pulse Rate 73 79 Respiratory Rate 18 Blood Pressure 123/89 Pulse Oximetry 99 Oxygen Delivery 05/09/24 20:00 05/09/24 20:10 05/09/24 21:10 Temperature Pulse Rate 84 88 Respiratory Rate 26 H 16 Blood Pressure 146/94 H 132/87 Pulse Oximetry 97 99 Oxygen Delivery Room Air 05/09/24 22:00 05/09/24 22:00 05/10/24 00:00 Temperature Pulse Rate 78 78 Respiratory Rate 22 H Blood Pressure 140/78 Pulse Oximetry 98 Oxygen Delivery Room Air 05/10/24 00:00 05/10/24 00:00 05/10/24 02:00 Temperature 37.2 C Pulse Rate 77 77 72 Respiratory Rate 19 Blood Pressure 127/87 Pulse Oximetry 91 Oxygen Delivery 05/10/24 02:00 05/10/24 04:00 05/10/24 04:00 Temperature 37.1 C Pulse Rate 72 65 65 Respiratory Rate 17 17 Blood Pressure 139/92 H 135/83 Pulse Oximetry 94 94 Oxygen Delivery 05/10/24 04:00 05/10/24 06:00 05/10/24 06:00 Temperature Pulse Rate 69 69 Respiratory Rate 18 Blood Pressure 134/83 Pulse Oximetry 92 Oxygen Delivery Room Air 05/10/24 08:00 05/10/24 08:00 05/10/24 08:00 Temperature 36.6 C Pulse Rate 81 90 90 Respiratory Rate 18 18 Blood Pressure 134/95 H Pulse Oximetry 98 98 Oxygen Delivery Room Air 05/10/24 08:36 Temperature Pulse Rate 77 Respiratory Rate Blood Pressure Pulse Oximetry Oxygen Delivery Intake/Output Intake/Output: Intake & Output 05/07/24 05/08/24 05/09/24 05/10/24 23:59 23:59 23:59 23:59 Intake Total 320 1060 Output Total 900 1300 Balance -580 -240 Meds/Results Medications: Active Medications Generic Name Dose Route Start Last Admin Trade Name Freq PRN Reason Stop Dose Admin Acetaminophen 650 mg 05/10/24 01:55 Acetaminophen 325 Mg Tablet PO Q4H PRN Headache Alprazolam 0.25 mg 05/09/24 14:35 05/09/24 21:54 Alprazolam (*Crx) 0.25 Mg Tablet PO 0.25 mg TID PRN Administration anxiety Amlodipine Besylate 5 mg 05/10/24 09:00 05/10/24 08:36 Amlodipine Besylate 5 Mg Tablet PO 5 mg DAILY TAY Administration Aspirin 81 mg 05/10/24 09:00 05/10/24 08:35 Aspirin 81 Mg Enteric Tablet PO 81 mg QAM TAY Administration Atorvastatin Calcium 80 mg 05/10/24 09:00 05/10/24 08:36 Atorvastatin 40 Mg Tablet PO 80 mg DAILY TAY Administration Citalopram Hydrobromide 20 mg 05/10/24 09:00 05/10/24 08:36 Citalopram Hydrobromide 20 Mg Tablet PO 20 mg DAILY TAY Administration Clopidogrel Bisulfate 75 mg 05/10/24 09:00 05/10/24 08:36 Clopidogrel Bisulfate 75 Mg Tablet PO 75 mg QAM TAY Administration Hydralazine HCl 10 mg 05/09/24 14:39 Hydralazine Hcl 20 Mg/Ml Vial IV PUSH Q4H PRN Blood Pressure - High Metoprolol Succinate 50 mg 05/09/24 14:10 05/10/24 08:36 Metoprolol Succinate Ext Rel 50 Mg Tabcr PO 50 mg QAM TAY Administration Nitroglycerin 0.4 mg 05/09/24 14:09 Nitroglycerin Sl 0.4 Mg Tablet SUBLINGUAL Q5MIN PRN Chest Pain Ondansetron HCl 4 mg 05/09/24 16:28 Ondansetron Inj 4 Mg/2 Ml Vial IV PUSH Q6H PRN Nausea And Vomiting Pantoprazole Sodium 40 mg 05/09/24 14:45 05/10/24 08:36 Pantoprazole 40 Mg Tablet PO 40 mg QAM TAY Administration Perflutren Lipid Microsphere 0 ml 05/09/24 15:20 Perflutren Lipid Microspheres 1.5 Ml Vial Diluted To 10 Ml Total Volume IV PUSH 05/12/24 15:20 ONCE PRN adequate visualization Protocol Radiology Results: ITS Impressions Chest X-Ray 05/09/24 12:42 Impression: Clear lungs. Labs Labs: Laboratory Results - last 24 hr 05/09/24 05/09/24 05/09/24 12:32 15:11 19:36 WBC 6.6 RBC 5.22 Hgb 11.8 L Hct 38.1 MCV 73.0 L MCH 22.6 L MCHC 31.0 L RDW 18.7 H Plt Count 443 H MPV 9.1 Immature Gran % (Auto) 0.3 Neut % (Auto) 47.9 Lymph % (Auto) 35.9 [place] % (Auto) 12.0 H Eos % (Auto) 3.0 Baso % (Auto) 0.9 Lymph # (Auto) 2.37 [place] # (Auto) 0.8 H Eos # (Auto) 0.2 Baso # (Auto) 0.1 Abs Immat Gran (auto) 0.02 Absolute Neuts (auto) 3.2 Absolute Nucleated RBC 0.000 Band Neutrophils % Not Reportable Nucleated RBC % 0.0 Platelet Estimate Slightly increased Anisocytosis 1+ Ovalocytes Schistocytes None seen PT 13.2 INR 1.0 APTT 28.2 Sodium 140 Potassium 3.3 L Chloride 107 Carbon Dioxide 20 L Anion Gap 13 H BUN 12 Creatinine 0.72 Estim Creat Clear Calc 74 Estimated GFR > 60 Glucose 172 H Hemoglobin A1c 5.6 Calcium 8.6 Phosphorus Magnesium Total Bilirubin 0.3 AST 19 ALT 14 Alkaline Phosphatase 105 Troponin I 0.013 4.780 H* D 19.600 H* D Total Protein 7.0 Albumin 3.8 Triglycerides 98 Cholesterol 189 LDL Cholesterol Direct 88 HDL Direct 44 Blood Type A Positive Antibody Screen Negative 05/10/24 04:34 WBC 10.1 H RBC 4.76 Hgb 10.8 L Hct 35.3 L MCV 74.2 L MCH 22.7 L MCHC 30.6 L RDW 18.7 H Plt Count 387 H MPV 9.3 Immature Gran % (Auto) 0.3 Neut % (Auto) 76.4 H Lymph % (Auto) 15.5 L [place] % (Auto) 6.7 Eos % (Auto) 0.7 Baso % (Auto) 0.4 Lymph # (Auto) 1.57 [place] # (Auto) 0.7 H Eos # (Auto) 0.1 Baso # (Auto) 0.0 Abs Immat Gran (auto) 0.03 Absolute Neuts (auto) 7.7 H Absolute Nucleated RBC 0.000 Band Neutrophils % 0 Nucleated RBC % 0.0 Platelet Estimate Slightly increased Anisocytosis 1+ Ovalocytes 1+ Schistocytes None seen PT INR APTT Sodium 138 Potassium 3.8 Chloride 108 H Carbon Dioxide 23 Anion Gap 7 BUN 9 Creatinine 0.74 Estim Creat Clear Calc 74 Estimated GFR > 60 Glucose 101 Hemoglobin A1c Calcium 8.6 Phosphorus 4.4 Magnesium 2.0 Total Bilirubin 0.3 AST 69 H ALT 20 Alkaline Phosphatase 90 Troponin I Total Protein 7.0 Albumin 3.4 L Triglycerides Cholesterol LDL Cholesterol Direct HDL Direct Blood Type Antibody Screen Cardiac catheterization LEFT HEART CATHETERIZATION FINDINGS: 1. Left main: The left main coronary artery is widely patent without any significant obstructive disease. 2. Left anterior descending: The LAD and the diagonal branches have mild luminal irregularities without any significant obstructive angiographic disease. 3. Left circumflex: The left circumflex artery and the main marginal branches have mild luminal irregularities without any significant obstructive angiogr aphic disease. The OM vessel is tortuous in the distal portion. 4. Right coronary artery: The RCA is the dominant vessel. The RCA has luminal irregularities. The RPLV has luminal irregularities. The RPDA appears to have type II SCAD in the mid portion with preserved flow to the distal portion of the vessel. 5. Left ventricle: A. End-diastolic pressure 21 mmHg. B. LV gram deferred. C. No significant gradient across aortic valve on catheter pullback.
--- NOTE | 2024-05-10 09:46 | P.PNINT_ITS ---
Progress Note: A&P Assessment and Plan (1) STEMI (ST elevation myocardial infarction): Code(s): I21.3 - ST elevation (STEMI) myocardial infarction of unspecified site Status: Acute Assessment and Plan: 05/09: Patient presented with chest pain, shortness of breath, diaphoresis, nausea. EMS was called, EKG done by EMS showed in few lateral UT, STEMI team was alerted. 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 Discussed with Cardiology, will maintain systolic blood pressures < 130 mmHg -medical management with aspirin, statin, Plavix, metoprolol, atorvastatin -echocardiogram is pending (2) Essential (primary) hypertension: Code(s): I10 - Essential (primary) hypertension Status: Acute Assessment and Plan: History of hypertension, on amlodipine and metoprolol -will add p.r.n. hydralazine for hypertension for SBP > 140 mmHg Plan DVT prophylaxis: SCDs Stress ulcer prophylaxis: Omeprazole Nutrition: Heart healthy diet Code Status: Full code Critical Care Time Spent: 31 minutes Patient may transfer out of the ICU if okay with Cardiology Due to a high probability of clinically significant, life threatening deter ioration, the patient required my highest level of preparedness to intervene emergently and I personally spent this critical care time directly and personally managing the patient. This critical care time included obtaining a history; examining the patient; pulse oximetry; ordering and review of studies; arranging urgent treatment with development of a management plan; evaluation of patient's response to treatment; frequent reassessment; and discussions with other providers. It was exclusive of separately billable procedures and treating other patients and teaching time. Please see Assessment and Plan section and the rest of the note for further information on patient assessment and treatment This dictation may have been done utilizing a voice recognition system. Attempts have been made to correct errors. However, there may be uncorrected grammatical, spelling, and recognitions errors present. Subjective Date/time seen: 05/10/24 09:46 Interval history: Reason for consult: SCADS - Spontaneous carotid artery dissection of the RPDA 04/29/1924: Patient seen and examined the ICU, is awake, alert, denies any chest pain, shortness of breath, abdominal pain, nausea vomiting. States she feels much better this morning. Hemodynamically stable, adequate urine output, afebrile Review of Systems Review of Systems: All systems reviewed & are unremarkable except as noted in HPI and below Exam Narrative: General: Pleasant female in no acute distress HEENT:? Pupils equal and reactive, sclera is clear, moist oral mucosa Neck:? Supple Respiratory:? Care to auscultation bilaterally, no wheezing, adequate air entry Cardiac:? S1-S2 is normal, regular rate and rhythm Abdomen:? Soft, nontender, nondistended, normoactive bowel sound Extremities:? No edema, palpable pedal pulse. Right medial angiogram site with TR band, no evidence of ecchymosis or hematoma. Right radial pulse is palpable. Right groin site with no evidence of hematoma or ecchymosis, bilateral lower extremity pedal pulses are palpable Neuro:? Awake, alert, oriented x3, nonfocal Skin:? No skin lesions noted Psych:? Normal mentation and affect Objective Data Vital Signs Vital Signs: Vital Signs - 24 hr 05/09/24 12:22 05/09/24 12:28 05/09/24 12:32 Temperature 98.2 F Pulse Rate 104 H 97 Respiratory Rate 16 14 Blood Pressure 183/112 H 175/115 H Pulse Oximetry 98 97 Oxygen Delivery Room Air Room Air 05/09/24 14:15 05/09/24 14:15 05/09/24 15:12 Temperature Pulse Rate 75 76 85 Respiratory Rate 16 Blood Pressure 141/86 H Pulse Oximetry 99 Oxygen Delivery 05/09/24 16:00 05/09/24 16:00 05/09/24 16:00 Temperature 98.4 F Pulse Rate 69 69 69 Respiratory Rate 12 12 Blood Pressure 139/87 Pulse Oximetry 99 99 Oxygen Delivery Room Air 05/09/24 16:30 05/09/24 17:10 05/09/24 17:40 Temperature 98.4 F Pulse Rate 69 77 68 Respiratory Rate 12 20 21 H Blood Pressure 139/87 126/75 124/72 Pulse Oximetry 99 98 95 Oxygen Delivery 05/09/24 18:00 05/09/24 18:00 05/09/24 18:10 Temperature Pulse Rate 72 72 72 Respiratory Rate 18 18 Blood Pressure 131/91 H 131/91 H Pulse Oximetry 99 98 Oxygen Delivery 05/09/24 19:10 05/09/24 20:00 05/09/24 20:00 Temperature 99 F Pulse Rate 73 79 Respiratory Rate 18 Blood Pressure 123/89 Pulse Oximetry 99 Oxygen Delivery 05/09/24 20:00 05/09/24 20:10 05/09/24 21:10 Temperature Pulse Rate 84 88 Respiratory Rate 26 H 16 Blood Pressure 146/94 H 132/87 Pulse Oximetry 97 99 Oxygen Delivery Room Air 05/09/24 22:00 05/09/24 22:00 05/10/24 00:00 Temperature Pulse Rate 78 78 Respiratory Rate 22 H Blood Pressure 140/78 Pulse Oximetry 98 Oxygen Delivery Room Air 05/10/24 00:00 05/10/24 00:00 05/10/24 02:00 Temperature 98.9 F Pulse Rate 77 77 72 Respiratory Rate 19 Blood Pressure 127/87 Pulse Oximetry 91 Oxygen Delivery 05/10/24 02:00 05/10/24 04:00 05/10/24 04:00 Temperature 98.7 F Pulse Rate 72 65 65 Respiratory Rate 17 17 Blood Pressure 139/92 H 135/83 Pulse Oximetry 94 94 Oxygen Delivery 05/10/24 04:00 05/10/24 06:00 05/10/24 06:00 Temperature Pulse Rate 69 69 Respiratory Rate 18 Blood Pressure 134/83 Pulse Oximetry 92 Oxygen Delivery Room Air 05/10/24 08:00 05/10/24 08:00 05/10/24 08:00 Temperature 97.8 F Pulse Rate 81 90 90 Respiratory Rate 18 18 Blood Pressure 134/95 H Pulse Oximetry 98 98 Oxygen Delivery Room Air 05/10/24 08:36 Temperature Pulse Rate 77 Respiratory Rate Blood Pressure Pulse Oximetry Oxygen Delivery Intake/Output Intake/Output: Intake & Output 05/07/24 05/08/24 05/09/24 05/10/24 23:59 23:59 23:59 23:59 Intake Total 320 1060 Output Total 900 1300 Balance -580 -240 Meds/Results Medications: Active Medications Generic Name Dose Route Start Last Admin Trade Name Freq PRN Reason Stop Dose Admin Acetaminophen 650 mg 05/10/24 01:55 Acetaminophen 325 Mg Tablet PO Q4H PRN Headache Alprazolam 0.25 mg 05/09/24 14:35 05/09/24 21:54 Alprazolam (*Crx) 0.25 Mg Tablet PO 0.25 mg TID PRN Administration anxiety Amlodipine Besylate 5 mg 05/10/24 09:00 05/10/24 08:36 Amlodipine Besylate 5 Mg Tablet PO 5 mg DAILY [facility] Administration Aspirin 81 mg 05/10/24 09:00 05/10/24 08:35 Aspirin 81 Mg Enteric Tablet PO 81 mg QAM [facility] Administration Atorvastatin Calcium 80 mg 05/10/24 09:00 05/10/24 08:36 Atorvastatin 40 Mg Tablet PO 80 mg DAILY [facility] Administration Citalopram Hydrobromide 20 mg 05/10/24 09:00 05/10/24 08:36 Citalopram Hydrobromide 20 Mg Tablet PO 20 mg DAILY [facility] Administration Clopidogrel Bisulfate 75 mg 05/10/24 09:00 05/10/24 08:36 Clopidogrel Bisulfate 75 Mg Tablet PO 75 mg QAM [facility] Administration Hydralazine HCl 10 mg 05/09/24 14:39 Hydralazine Hcl 20 Mg/Ml Vial IV PUSH Q4H PRN Blood Pressure - High Metoprolol Succinate 50 mg 05/09/24 14:10 05/10/24 08:36 Metoprolol Succinate Ext Rel 50 Mg Tabcr PO 50 mg QAM [facility] Administration Nitroglycerin 0.4 mg 05/09/24 14:09 Nitroglycerin Sl 0.4 Mg Tablet SUBLINGUAL Q5MIN PRN Chest Pain Ondansetron HCl 4 mg 05/09/24 16:28 Ondansetron Inj 4 Mg/2 Ml Vial IV PUSH Q6H PRN Nausea And Vomiting Pantoprazole Sodium 40 mg 05/09/24 14:45 05/10/24 08:36 Pantoprazole 40 Mg Tablet PO 40 mg QAM [facility] Administration Perflutren Lipid Microsphere 0 ml 05/09/24 15:20 Perflutren Lipid Microspheres 1.5 Ml Vial Diluted To 10 Ml Total Volume IV PUSH 05/12/24 15:20 ONCE PRN adequate visualization Protocol Radiology Results: ITS Impressions Chest X-Ray 05/09/24 12:42 Impression: Clear lungs. Labs Labs: Laboratory Results - last 24 hr 05/09/24 05/09/24 05/09/24 12:32 15:11 19:36 WBC 6.6 RBC 5.22 Hgb 11.8 L Hct 38.1 MCV 73.0 L MCH 22.6 L MCHC 31.0 L RDW 18.7 H Plt Count 443 H MPV 9.1 Immature Gran % (Auto) 0.3 Neut % (Auto) 47.9 Lymph % (Auto) 35.9 Davison % (Auto) 12.0 H Eos % (Auto) 3.0 Baso % (Auto) 0.9 Lymph # (Auto) 2.37 Davison # (Auto) 0.8 H Eos # (Auto) 0.2 Baso # (Auto) 0.1 Abs Immat Gran (auto) 0.02 Absolute Neuts (auto) 3.2 Absolute Nucleated RBC 0.000 Band Neutrophils % Not Reportable Nucleated RBC % 0.0 Platelet Estimate Slightly increased Anisocytosis 1+ Ovalocytes Schistocytes None seen PT 13.2 INR 1.0 APTT 28.2 Sodium 140 Potassium 3.3 L Chloride 107 Carbon Dioxide 20 L Anion Gap 13 H BUN 12 Creatinine 0.72 Estim Creat Clear Calc 74 Estimated GFR > 60 Glucose 172 H Hemoglobin A1c 5.6 Calcium 8.6 Phosphorus Magnesium Total Bilirubin 0.3 AST 19 ALT 14 Alkaline Phosphatase 105 Troponin I 0.013 4.780 H* D 19.600 H* D Total Protein 7.0 Albumin 3.8 Triglycerides 98 Cholesterol 189 LDL Cholesterol Direct 88 HDL Direct 44 Blood Type A Positive Antibody Screen Negative 05/10/24 04:34 WBC 10.1 H RBC 4.76 Hgb 10.8 L Hct 35.3 L MCV 74.2 L MCH 22.7 L MCHC 30.6 L RDW 18.7 H Plt Count 387 H MPV 9.3 Immature Gran % (Auto) 0.3 Neut % (Auto) 76.4 H Lymph % (Auto) 15.5 L Davison % (Auto) 6.7 Eos % (Auto) 0.7 Baso % (Auto) 0.4 Lymph # (Auto) 1.57 Davison # (Auto) 0.7 H Eos # (Auto) 0.1 Baso # (Auto) 0.0 Abs Immat Gran (auto) 0.03 Absolute Neuts (auto) 7.7 H Absolute Nucleated RBC 0.000 Band Neutrophils % 0 Nucleated RBC % 0.0 Platelet Estimate Slightly increased Anisocytosis 1+ Ovalocytes 1+ Schistocytes None seen PT INR APTT Sodium 138 Potassium 3.8 Chloride 108 H Carbon Dioxide 23 Anion Gap 7 BUN 9 Creatinine 0.74 Estim Creat Clear Calc 74 Estimated GFR > 60 Glucose 101 Hemoglobin A1c Calcium 8.6 Phosphorus 4.4 Magnesium 2.0 Total Bilirubin 0.3 AST 69 H ALT 20 Alkaline Phosphatase 90 Troponin I Total Protein 7.0 Albumin 3.4 L Triglycerides Cholesterol LDL Cholesterol Direct HDL Direct Blood Type Antibody Screen Quality VTE Prophylaxis VTE prophylaxis: mechanical ordered
[2024-05-10] MEDS: PERFLUTREN LIPID MICROSPHERES 1.5 ML VIAL DILUTED TO 10 ML TOTAL VOLUME IV PUSH (12:50)
--- NOTE | 2024-05-10 14:10 | IVDEFINITY ---
Prior to administration of IV Definity the patient was educated on the risks and benefits of the imaging enhancing agent including potential adverse side effects. The patient verbalized understanding. Allergies were verified. No exclusion criteria were identified and at least one of the following inclusion criteria were met: 1) physician request, 2) patient technically difficult to image (per the [place] [employer] guidelines of two or more segments not discernable within the apical view), or 3) questionable left ventricular function. ?
[2024-05-11] VITALS (12 sets, daily range): BP systolic 104–116; BP diastolic 63–77; PULSE 58–87; RESP 13–18; TEMP 36.8–36.9; O2SAT 85–100
[2024-05-11] MEDS: ALPRAZolam (*CRX) 0.25 MG TABLET PO ×2 (00:07→10:07)
[2024-05-11] MEDS: ATORVASTATIN 40 MG TABLET 80 MG PO (08:40)
[2024-05-11] MEDS: CLOPIDOGREL BISULFATE 75 MG TABLET PO (08:40)
[2024-05-11] MEDS: ASPIRIN 81 MG ENTERIC TABLET PO (08:40)
[2024-05-11] MEDS: CITALOPRAM HYDROBROMIDE 20 MG TABLET PO (08:40)
[2024-05-11] MEDS: amLODIPine BESYLATE 5 MG TABLET PO (08:40)
[2024-05-11] MEDS: METOPROLOL SUCCINATE EXT REL 50 MG TABCR PO (08:40)
[2024-05-11] MEDS: PANTOPRAZOLE 40 MG TABLET PO (08:41)
[2024-05-11] MEDS: ACETAMINOPHEN 325 MG TABLET 650 MG PO (08:41)
--- NOTE | 2024-05-11 11:17 | PM.PNCARD ---
Progress Note: A&P Assessment and Plan (1) Spontaneous dissection of coronary artery: Code(s): I25.42 - Coronary artery dissection Status: Acute (2) Ischemic cardiomyopathy: Code(s): I25.5 - Ischemic cardiomyopathy Status: Acute (3) Essential (primary) hypertension: Code(s): I10 - Essential (primary) hypertension Status: Acute Plan 53-year-old woman with hypertension presented with chest pain whose clinical presentation was consistent ST-elevation found to have spontaneous coronary artery dissection Spontaneous coronary artery dissection -no recurrence of pain and she is hemodynamically stable -continue aspirin 81 mg p.o. daily and Plavix 75 mg p.o. daily -maintain systolic blood pressure goals <120 mm Hg -recommend ambulation today to assess tolerance to minimal physical activity -we have discussed avoidance of strenuous activity for the next 2-3 months with close outpatient follow-up -we have also discussed blood pressure control -all questions were answered Ischemic cardiomyopathy -continue metoprolol succinate 50 mg p.o. daily -we will stop her amlodipine and start her on a low-dose losartan 25 mg p.o. daily Hypertension -losartan 25 mg p.o. daily and metoprolol succinate 50 mg p.o. daily Can move to IMU telemetry. If tolerating minimal physical activity with no recurrence of chest discomfort or hemodynamic compromise, would anticipate discharge tomorrow Subjective Date/time seen: 05/11/24 11:17 Interval history: Denies chest pain, shortness of breath, orthopnea Review of Systems Cardiovascular: Cardiovascular: Reports as per HPI Respiratory: Respiratory: Reports as per HPI Exam Const: General: comfortable HENMT: Mouth: Yes moist mucous membranes Eyes: EOM: EOMs intact bilaterally Neck: Neck: no JVD Resp: Effort & Inspection: normal respiratory effort Auscultation: clear to auscultation bilaterally Cardio: Rate: regular rate Rhythm: regular rhythm GI: GI Palp: Yes Soft to palpation Neuro: Speech: normal speech Extrem: General: no pedal edema Objective Data Vital Signs Vital Signs: Vital Signs - 24 hr 05/10/24 12:00 05/10/24 12:00 05/10/24 12:00 Temperature 36.7 C Pulse Rate 98 91 81 Respiratory Rate 18 20 Blood Pressure 115/80 Pulse Oximetry 96 100 Oxygen Delivery Room Air Oxygen Flow Rate 05/10/24 14:00 05/10/24 16:00 05/10/24 16:00 Temperature Pulse Rate 75 69 66 Respiratory Rate 20 Blood Pressure Pulse Oximetry Oxygen Delivery Room Air Oxygen Flow Rate 05/10/24 16:00 05/10/24 18:00 05/10/24 20:00 Temperature 36.7 C 36.9 C Pulse Rate 72 74 71 Respiratory Rate 18 15 Blood Pressure 97/64 L 109/70 Pulse Oximetry 98 97 Oxygen Delivery Oxygen Flow Rate 05/10/24 20:00 05/10/24 20:00 05/10/24 22:00 Temperature Pulse Rate 71 73 71 Respiratory Rate 15 Blood Pressure Pulse Oximetry 97 Oxygen Delivery Room Air Oxygen Flow Rate 05/11/24 00:00 05/11/24 00:00 05/11/24 00:00 Temperature 36.9 C Pulse Rate 72 70 87 Respiratory Rate 13 15 Blood Pressure 116/77 Pulse Oximetry 100 99 Oxygen Delivery Room Air Oxygen Flow Rate 05/11/24 01:19 05/11/24 01:20 05/11/24 02:00 Temperature Pulse Rate 85 71 62 Respiratory Rate Blood Pressure Pulse Oximetry 85 L 99 Oxygen Delivery Room Air Nasal Cannula Oxygen Flow Rate 2 05/11/24 04:00 05/11/24 04:00 05/11/24 04:00 Temperature 36.8 C Pulse Rate 66 66 66 Respiratory Rate 15 18 Blood Pressure 104/69 Pulse Oximetry 100 99 Oxygen Delivery Room Air Oxygen Flow Rate 05/11/24 06:00 05/11/24 08:00 05/11/24 08:00 Temperature 36.8 C Pulse Rate 74 71 Respiratory Rate 14 Blood Pressure 115/70 Pulse Oximetry 100 Oxygen Delivery Room Air Oxygen Flow Rate 05/11/24 08:00 05/11/24 08:40 05/11/24 10:00 Temperature Pulse Rate 58 L 73 74 Respiratory Rate Blood Pressure Pulse Oximetry Oxygen Delivery Oxygen Flow Rate Intake/Output Intake/Output: Intake & Output 05/08/24 05/09/24 05/10/24 05/11/24 23:59 23:59 23:59 23:59 Intake Total 320 2280 240 Output Total 900 2250 300 Balance -580 30 -60 Meds/Results Medications: Active Medications Generic Name Dose Route Start Last Admin Trade Name Freq PRN Reason Stop Dose Admin Acetaminophen 650 mg 05/10/24 01:55 05/11/24 08:41 Acetaminophen 325 Mg Tablet PO 650 mg Q4H PRN Administration Headache Alprazolam 0.25 mg 05/09/24 14:35 05/11/24 10:07 Alprazolam (*Crx) 0.25 Mg Tablet PO 0.25 mg TID PRN Administration anxiety Amlodipine Besylate 5 mg 05/10/24 09:00 05/11/24 08:40 Amlodipine Besylate 5 Mg Tablet PO 5 mg DAILY [facility] Administration Aspirin 81 mg 05/10/24 09:00 05/11/24 08:40 Aspirin 81 Mg Enteric Tablet PO 81 mg QAM [facility] Administration Atorvastatin Calcium 80 mg 05/10/24 09:00 05/11/24 08:40 Atorvastatin 40 Mg Tablet PO 80 mg DAILY [facility] Administration Citalopram Hydrobromide 20 mg 05/10/24 09:00 05/11/24 08:40 Citalopram Hydrobromide 20 Mg Tablet PO 20 mg DAILY [facility] Administration Clopidogrel Bisulfate 75 mg 05/10/24 09:00 05/11/24 08:40 Clopidogrel Bisulfate 75 Mg Tablet PO 75 mg QAM [facility] Administration Hydralazine HCl 10 mg 05/09/24 14:39 Hydralazine Hcl 20 Mg/Ml Vial IV PUSH Q4H PRN Blood Pressure - High Metoprolol Succinate 50 mg 05/09/24 14:10 05/11/24 08:40 Metoprolol Succinate Ext Rel 50 Mg Tabcr PO 50 mg QAM [facility] Administration Nitroglycerin 0.4 mg 05/09/24 14:09 Nitroglycerin Sl 0.4 Mg Tablet SUBLINGUAL Q5MIN PRN Chest Pain Ondansetron HCl 4 mg 05/09/24 16:28 Ondansetron Inj 4 Mg/2 Ml Vial IV PUSH Q6H PRN Nausea And Vomiting Pantoprazole Sodium 40 mg 05/09/24 14:45 05/11/24 08:41 Pantoprazole 40 Mg Tablet PO 40 mg QAM [facility] Administration Radiology Results: ITS Impressions Chest X-Ray 05/09/24 12:42 Impression: Clear lungs.
[2024-05-11] MEDS: FAMOTIDINE 20 MG TABLET 40 MG PO (15:19)
[2024-05-12] VITALS: BP 121/80; PULSE 72; PULSE 73; RESP 26; O2SAT 98
[2024-05-12] MEDS: ALPRAZolam (*CRX) 0.25 MG TABLET PO (01:30)
[2024-05-12 04:00] VITALS: PULSE 59
--- NOTE | 2024-05-12 06:35 | PC.NURSE ---
This patient, Meredith Gilbert, was transferred to [facility] on 05/12/24 at 0600. Personal belongings sent with patient. Appropriate documentation sent with patient.
[2024-05-12 08:00] VITALS: BP 109/64; PULSE 72; PULSE 80; RESP 12; TEMP 36.4; O2SAT 98
[2024-05-12 08:51] VITALS: PULSE 80
[2024-05-12] MEDS: ATORVASTATIN 40 MG TABLET 80 MG PO (08:51)
[2024-05-12] MEDS: LOSARTAN POTASSIUM 25 MG TABLET PO (08:51)
[2024-05-12] MEDS: CITALOPRAM HYDROBROMIDE 20 MG TABLET PO (08:51)
[2024-05-12] MEDS: CLOPIDOGREL BISULFATE 75 MG TABLET PO (08:51)
[2024-05-12] MEDS: PANTOPRAZOLE 40 MG TABLET PO (08:51)
[2024-05-12] MEDS: ASPIRIN 81 MG ENTERIC TABLET PO (08:51)
[2024-05-12] MEDS: METOPROLOL SUCCINATE EXT REL 50 MG TABCR PO (08:51)
--- NOTE | 2024-05-12 09:35 | P.DS_ITS ---
DS: Admitting Diagnosis Discharge Date 05/12/24 Admitting Diagnosis chest pain DS: Discharge Diagnosis Discharge Diagnosis (1) Spontaneous dissection of coronary artery: Code(s): I25.42 - Coronary artery dissection Status: Acute (2) Ischemic cardiomyopathy: Code(s): I25.5 - Ischemic cardiomyopathy Status: Acute (3) Essential (primary) hypertension: Code(s): I10 - Essential (primary) hypertension Status: Acute Plan 53-year-old woman with hypertension presented with chest pain whose clinical presentation was consistent ST-elevation found to have spontaneous coronary artery dissection Spontaneous coronary artery dissection -no recurrence of pain and she is hemodynamically stable -continue aspirin 81 mg p.o. daily and Plavix 75 mg p.o. daily -maintain systolic blood pressure goals <120 mm Hg -has ambulated with no recurrence of pain -we have discussed avoidance of strenuous activity for the next 2-3 months with close outpatient follow-up -we have also discussed blood pressure control -all questions were answered and she was provided with activity restrictions. Lengthy discussion at the bedside. Ischemic cardiomyopathy -continue metoprolol succinate 50 mg p.o. daily -Continue losartan 25 mg p.o. daily Hypertension -losartan 25 mg p.o. daily and metoprolol succinate 50 mg p.o. daily Stable and appropriate for discharge today. DS: Summary Hospital Course Hospital Course: Meredith is a 53 year old female with no prior cardiac history who presented with chest pain on 05/06/2024. EKG by EMS showed inferolateral STEMI and EKG in the ED showed sinus rhythm, inferolateral ST elevations with reciprocal ST depressions. She was taken emergently to the cardiac labor utilization superintendent for coronary angiogram and possible PCI. 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 As she was hemodynamically stable this was treated medically with ASA, plavix. She was found to have mild cardiomyopathy with EF 40-45%. She was started on medical therapy for this with metoprolol and losartan. Time Spent with Patient Time attestation: Total time spent providing and/or coordinating discharge services: Exam Narrative: Appears stated age Const: General: comfortable and no acute distress HENMT: Mouth: Yes moist mucous membranes Eyes: General: appearance normal, both eyes and all related structures Sclera: sclerae normal EOM: EOMs intact bilaterally Neck: Neck: supple and no JVD Resp: Effort & Inspection: normal respiratory effort Auscultation: clear to auscultation bilaterally Cardio: Rate: regular rate Rhythm: regular rhythm GI: Inspection: non-distended Skin: General skin exam: normal color Neuro: Cranial nerves: No Normal hearing present Speech: normal speech and No Abnormal speech present Extrem: General: normal to inspection and no pedal edema Other: Right wrist free of hematoma ecchymosis Psych: Mental Status: mental status grossly normal Affect: normal affect Discharge Plan Discharge Attending physician on discharge: Eyal Cerda Consulting providers: Eyal Cerda Discharging Clinician: Cristine Anderson Patient Disposition: Home, Self-Care Activity: other - see discharge instructions Diet: heart healthy Wound Care Instructions: other - see discharge instructions Discharge Instructions: [facility] [address] [place] [address] DISCHARGE INSTRUCTIONS - POST CARDIAC CATH Activity Restriction 1. No Driving for 24 hours 2. No lifting, pushing or pulling more than 10 LBS for 1 week 3. No strenuous activity or exercising for 1 week 4. Shower after 24 hours, do not soak in any water such as hot tubs or bath tubs Wound Care 1. Remove dressing 24 hours after your procedure prior to showering 2. Lather soap and water to puncture site and rinse then pat dry 3. You may apply a new band aid to the site and remove after 24 hours then leave open to air 4. Monitor daily for redness, drainage, mild swelling and fever Report IMMEDIATELY: CALL 911 1. If you experience any swelling or bleeding from puncture site. Hold firm pressure over the puncture site until help arrives 2. If you experience any new discomfort in you back, neck, jaw, stomach or arm. Any shortness of breath, nausea, vomiting, or cold sweats 3. If you experience any swelling, tenderness, or numbness in your leg or if your leg becomes cold or has color changes. Follow Up 1. Follow your doctors discharge instructions on resuming your medications. Some medications will need to be held after your procedure 2. Follow up with the office to schedule your next appointment with your doctor 3. Drink plenty of water following your procedure, avoid alcohol If you received a stent or a closure device keep your card with you such as in your wallet. Present your card to your doctor appointments to update your health care information. *For any other questions please call the office at [phone]. Office hours are 8AM 4:30PM Wednesday through Wednesday. Physical Activity: Resume usual activities of daily living in a gradual fashion over the first week. Do not lift more than 10 lbs for the first two weeks after discharge. Avoid strenuous activities like aerobic workouts until you have been cleared to do so by your diesel plant operator. Driving: Do not drive for one month if you have a private driving licence or three months if you have a professional driving licence. Sexual Activity: Refrain from sexual activity for two months post-discharge or until cleared by your diesel plant operator. After your treatment for SCAD, you will need to have follow-up appointments with a diesel plant operator. Your diesel plant operator may recommend other types of care to help you recover and to prevent further health problems. These may include: Cardiac rehabilitation: Cardiac rehabilitation is a program of exercise and ed ucation designed to help you recover. Cardiac rehabilitation often includes monitored exercise, nutritional counseling, stress management and education about good self-care. Review of family medical history: Some inherited conditions have been found to occur in people who experience SCAD. Genetic testing may also be recommended to help diagnose any underlying disease. Imaging of other blood vessels: Your doctor may recommend a CT scan to look for weaknesses or abnormalities in other blood vessels, such as those in your neck and abdomen. Angiogram: A repeat angiogram may be performed to assess how well the artery is healing. Cardiac CT: A cardiac CT scan may be another option to assess how well the artery is healing. Consultations with other specialties. Depending on the results of your tests, you may be advised to see other specialties such as a resident care coordinator, car escort or neurologist. Patient Instructions: Antibiotic Form Patient Language: Moroccan Stand Alone Forms: General Discharge Information Follow-up/Referrals: Eyal Cerda MD [Physician] - 4 Weeks Discharge Medications: New atorvastatin 40 mg Tablet 80 mg PO DAILY 30 Days Qty: 60 11RF metoprolol succinate 50 mg Tablet Extended Release 24 Hr 50 mg PO QAM 30 Days Qty: 30 11RF clopidogrel 75 mg Tablet 75 mg PO QAM 30 Days Qty: 30 11RF aspirin 81 mg Tablet,Delayed Release (Dr/Ec) 81 mg PO QAM 30 Days Qty: 30 11RF losartan 25 mg Tablet 25 mg PO DAILY 30 Days Qty: 30 11RF Continued citalopram 20 mg tablet See Rx Instructions .ROUTE .COMPLEX Qty: 90 1RF Dose Instruction: TAKE 1 TABLET BY MOUTH DAILY Rx Instructions: TAKE 1 TABLET BY MOUTH DAILY omeprazole 40 mg capsule,delayed release(DR/EC) 40 mg PO DAILY Qty: 90 2RF alprazolam [Xanax] 0.25 mg tablet 0.25 mg PO TID PRN (Reason: anxiety) Qty: 90 0RF Discontinued amlodipine 5 mg tablet See Rx Instructions .ROUTE .COMPLEX Qty: 90 1RF Dose Instruction: TAKE 1 TABLET BY MOUTH DAILY Rx Instructions: TAKE 1 TABLET BY MOUTH DAILY Date of admission: 05/09/24 12:25 Primary Care Provider: Herminio Gonzalez Admitting Provider: Eyal Cerda Attending physician on admission: Eyal Cerda Condition: Serious
--- NOTE | 2024-05-12 11:19 | PC.NURSE ---
On 05/12/24, students, [Janae Rodriguez and Fay Chan], provided care and completed [facility] documentation on this patient. I have reviewed the student's documentation and agree with the findings.
== END 2024-05-12 13:04 | disposition home or self-care (01) | DRG 191 ==
LOC: ANHED 12:29 → ANHICU 13:25 → ANHIMU 05-12 10:11 → ANHICU 05-15 11:38 → ANHIMU 05-15 11:38
PROVIDERS: Internal Medicine; Admitting Provider Internal Medicine; Emergency Provider Emergency Medicine; PCP Nurse Practitioner; Visit Provider Nurse Practitioner
PROC: 4A023N7 Measurement of Cardiac Sampling and Pressure, Left Heart, Percutaneous Approach (ICD-10-PCS; CPT 93452; principal; 2024-05-09 12:30)
DX: I25.42 Coronary artery dissection (principal); I10 Essential (primary) hypertension; F41.9 Anxiety disorder, unspecified; I25.5 Ischemic cardiomyopathy
CPT/HCPCS: 36415; 71045; 80053; 80061; 83036; 83735; 84100; 84484; 85025; 85610; 85730; 86850; 86900; 86901; 93005; 93458; 99291; A9270; C1769; C1887; C1894; C8929; J0583; J1644; J2003; J2250; J2270; J2305; J2405; J3010; J7030; J7040; Q9957